=== PATIENT | female | born 1985 | race Caucasian/White ===

== ENCOUNTER → 2018-05-15 | Outpatient (CLI) | payer BC ==
[2018-05-16 10:10] LABS: Candida species (DNA Probe) Negative (NEGATIVE); G. vaginalis (DNA Probe) Negative (NEGATIVE); T. vaginalis (DNA Probe) Negative (NEGATIVE)
[2018-05-17 13:09] LABS: HPV 16 Negative (Negative); HPV 18 Negative (Negative); HPV OTHER HR TYPES Negative (Negative)
== END | disposition home or self-care (01) ==
LOC: LAB SHORT 12:10 → LAB 12:10
PROVIDERS: Nurse Practitioner Obstetrics & Gynecology
DX: Z01.411 Encounter for gynecological examination (general) (routine) with abnormal findings (principal); N76.0 Acute vaginitis
CPT/HCPCS: 87480; 87510; 87624; 87660; G0123

== ENCOUNTER 2022-08-14 10:17 | Day surgery (SDC) | payer OTHER ==
[~2022-08-14] VITALS: Ht 162.6 cm; Wt 63.7 kg
[2022-08-14] MEDS ORDERED: SPIR50 PO (10:55)
--- NOTE | 2022-08-14 11:20 | NUR ---
08/14/22 [address] MEJIAS, NO NEED TO PERFORM EKG
[2022-08-14 14:05] VITALS: BP 154/101
--- NOTE | 2022-08-14 14:06 | NUR ---
08/14/22 1406 Grace Art REPORT GIVEN TO [facility].LJ AT 1402.
== END 2022-08-14 14:28 | disposition home or self-care (01) ==
LOC: ORSCSDS 10:17
PROVIDERS: Podiatrist Foot & Ankle Surgery
PROC: 0QSK04Z Reposition Left Fibula with Internal Fixation Device, Open Approach (ICD-10-PCS; principal; 2022-08-14 11:30)
DX: S82.62XA Displaced fracture of lateral malleolus of left fibula, initial encounter for closed fracture (principal); W18.49XA Other slipping, tripping and stumbling without falling, initial encounter; I10 Essential (primary) hypertension; J45.909 Unspecified asthma, uncomplicated; Z79.899 Other long term (current) drug therapy
CPT/HCPCS: A9270; C1713; J1100; J1885; J2250; J2405; J2704; J2795; J3010; J7120; S0077